=== PATIENT | male | born 1960 | race African-American/Black ===

== ENCOUNTER 2024-08-25 07:14 | Outpatient (CLI) | payer OTHER ==
[~2024-08-25 07:14] MED LIST: ABILIFY10 MG PO; ABILIFY20 MG; ATIVAN1 M1 PO; ATIVAN2 M1 PO; BENZTROPINE ME0.5 MG; CLONAZEPAM0.5 MG; PNEU16DI2; SIMETHICONE80 MG PO; SYNTHROID50 MCG; VISTARIL50 MG PO
== END 2024-08-25 07:16 | disposition home or self-care (01) ==
LOC: SONOGRAMA 07:14
PROVIDERS: ATTEND General Practice
DX: R10.9 Unspecified abdominal pain (principal)

== ENCOUNTER 2024-09-11 15:45 | Outpatient (CLI) | payer OTHER | END 2024-09-11 15:51 | disposition home or self-care (01) | LOC: RAD 15:45 | PROVIDERS: ATTEND General Practice | DX: E11.69 Type 2 diabetes mellitus with other specified complication (principal); Z79.83 Long term (current) use of bisphosphonates; E11.22 Type 2 diabetes mellitus with diabetic chronic kidney disease; E11.36 Type 2 diabetes mellitus with diabetic cataract; N18.1 Chronic kidney disease, stage 1; I10 Essential (primary) hypertension; I20.9 Angina pectoris, unspecified; Z68.23 Body mass index [BMI] 23.0-23.9, adult; K29.40 Chronic atrophic gastritis without bleeding; R10.9 Unspecified abdominal pain; M79.672 Pain in left foot; M79.671 Pain in right foot; I73.9 Peripheral vascular disease, unspecified; F33.1 Major depressive disorder, recurrent, moderate; F20.9 Schizophrenia, unspecified; G20.C Parkinsonism, unspecified ==